=== PATIENT | male | born 1985 | race Hispanic/Latino ===

== ENCOUNTER 2023-11-09 02:16 | Emergency (ER) | payer SELFPAY ==
[2023-11-09] VITALS (7 sets, daily range): BP systolic 100–141; BP diastolic 62–93; PULSE 72–95; RESP 14–20; TEMP 36.8; O2SAT 98–100
--- NOTE | ~2023-11-09 | XR_ITS ---
XR chest 1V portable DATE: 11/09/2023 03:22 INDICATION: Cough TECHNIQUE: Portable upright AP chest on 11/09/2023 at 0308 hours COMPARISON: None FINDINGS: Normal heart size. No hilar or mediastinal enlargement. No pulmonary infiltrate or consolid ation, pleural effusion or pulmonary vascular congestion or pneumothorax is detected. Included skeletal structures are unremarkable. IMPRESSION: No active cardiopulmonary disease Reviewed, dictated and finalized at location A.
--- NOTE | 2023-11-09 02:31 | ECG_ITS ---
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 Measurements Intervals [place] Rate: 91 P: 67 OK: 135 QRS: 71 QRSD: 94 T: 70 QT: 363 QTc: 448 Interpretive Statements SINUS RHYTHM POSSIBLE LEFT ATRIAL ENLARGEMENT [-0.1mV P WAVE IN V1/V2] No previous ECG available for comparison Electronically Signed On 11-09-2023 14:15:04 CDT by Garrick Madrid M.D.
[2023-11-09 02:40] LABS: Basophils Percent Auto 0.5 % (0.2-1.2); Eosinophils Absolute Auto 0.1 K/mm3 (0-0.3); Eosinophils Percent Auto 1.6 % (0-4.4); Hematocrit 43.4 % (42.0-52.0); Hemoglobin 15.4 g/dL (14.0-18.0); Immature Granulocyte Absolute 0.02 K/mm3 (0.00-0.031); Immature Granulocyte Percent A 0.3 % (0-0.5); Lymphocytes Absolute Auto 1.65 K/mm3 (0.9-3.2); Mean Corpuscular HGB Conc 35.5 g/dl (32-36); Mean Corpuscular Volume 87.3 fl (80-100); Monocytes Absolute Auto 0.4 K/mm3 (0.1-0.6); Monocytes Percent Auto 6.4 % (2.6-8.5); Neutrophils Absolute Auto 3.9 K/mm3 (1.3-6.7); Neutrophils Percent Auto 64.2 % (45.5-73.1); Platelet Count Result 305 k/mm3 (150-375); Red Blood Count 4.97 M/mm3 (4.6-6.20); Red Cell Distribution Width 12.7 % (11.5-14.5); White Blood Count 6.1 K/mm3 (4.5-10.0)
[2023-11-09 02:41] LABS: Glucose Point of Care 364 mg/dl (65-105)
[2023-11-09 02:45] LABS: Appearance Urine Clear (Clear); Bilirubin Urine Negative (Negative); Blood Urine Negative (Negative); Color Urine Yellow (Yellow); Glucose Urine UA 3+ mg/dL (Negative); Ketones Urine Negative (Negative); Leukocyte Esterase Ur Negative LEU/UL (Negative); Nitrate Urine Negative (Negative); Protein Urine Negative (Negative); Urobilinogen Urine 0.2 mg/dL (<2.0); pH Urine 5.5 (5.0-9.0)
--- NOTE | 2023-11-09 02:45 | PC.NURSE ---
Called down to lab to add on troponin 1 to green top
[2023-11-09 02:51] LABS: Alanine Aminotransferase 42 U/L (6-50); Albumin Level 4.4 g/dL (3.5-5.1); Alkaline Phosphatase 129 U/L (38-126); Anion Gap 9 mmol/L (4-12); Aspartate Amino Transferase 76 U/L (17-59); Bilirubin,Total 0.4 mg/dL (0.2-1.3); Blood Urea Nitrogen 18 mg/dL (9-20); Calcium 9.3 mg/dL (8.4-10.2); Carbon Dioxide 26 mmol/L (22-30); Chloride 101 mmol/L (98-107); Estimated CRCL calculation 110 ml/min; Estimated Glomerular Filt Rate > 60; Glucose 424 mg/dL (65-110); Lipase 114 U/L (23-300); Potassium 4.1 mmol/L (3.4-5.0); Sodium 136 mmol/L (137-145)
[2023-11-09 03:01] LABS: Barbiturate Screen Urine Negative (Negative); Benzodiazepines Screen Urine Negative (Negative)
[2023-11-09 03:02] LABS: Cannabinoid Screen Urine Negative (Negative); Cocaine Screen Urine Negative (Negative); Methadone Screen Urine Negative (Negative); Opiate Screen Urine Negative (Negative); Phencyclidine Screen Urine Negative (Negative)
[2023-11-09 03:05] LABS: Troponin I < 0.012 ng/mL (0.000-0.034)
[2023-11-09 03:14] LABS: Add Urine Microscopic? NO; Specific Grav Ur 1.039 (1.001-1.035)
[2023-11-09 03:27] LABS: Amphetamine Screen Urine Positive (Negative)
[2023-11-09] MEDS: SODIUM CHLORIDE 0.9% IV 1,000 ML 999 ML IV CONT ×2 (03:40)
--- NOTE | 2023-11-09 04:08 | ED.GENADULT ---
HPI - General Adult General Chief complaint: Recheck/Abnormal Lab/Rx Stated complaint: Headache/Nausea Time Seen by Provider: 11/09/23 02:35 History of Present Illness HPI narrative: patient is a 38-year-old gentleman who presents emergency department with chief complaint of high blood sugars and burning with urination. The patient reports that he has been taking metformin and also been taking methamphetamine patient reports this evening he was detained by the police and started feeling ill and decided to come to the emergency department the patient also reports that he had some discomfort in his chest and has a very dry mouth Related Data Allergies Allergy/AdvReac Type Severity Reaction Status Date / Time Penicillins Allergy Hives Verified 11/09/23 02:29 Review of Systems Review of Systems: A 10 system review of systems was completed on the patient and is negative except for what is stated in the HPI. Nursing and ancillary documentation was reviewed. Exam Narrative: GENERAL: Well-appearing, well-nourished, and in no acute distress. HEAD: Normocephalic, atraumatic. EYES: PERRLA and EOMI. ENT: Nares clear, no rhinorrhea or epistaxis. Mucous membranes moist. NECK: Supple. CHEST: Clear to auscultation. No respiratory distress. HEART: Regular rate and rhythm. No murmur heard. Normal peripheral pulses. ABDOMEN: Soft, nontender, nondistended, normal active bowel sounds. : Normal external male genitalia uncircumcised no lesions present no necrotic tissue no crepitance no signs of Grace's gangrene EXTREMITIES: Normal range of motion. No edema. SKIN: Warm, dry, no rash. NEURO: No focal deficits. Alert and oriented x3. PSYCH: Normal mood and affect. Course Vital Signs Vital signs: Vital Signs Temperature 36.8 C 11/09/23 02:20 Pulse Rate 95 11/09/23 02:20 Respiratory Rate 18 11/09/23 02:20 Blood Pressure 141/91 H 11/09/23 02:20 Pulse Oximetry 100 11/09/23 02:20 Oxygen Delivery Room Air 11/09/23 02:20 Temperature 36.8 C 11/09/23 02:20 Pulse Rate 73 11/09/23 05:21 Respiratory Rate 14 11/09/23 05:21 Blood Pressure 115/79 11/09/23 05:21 Pulse Oximetry 98 11/09/23 05:21 Oxygen Delivery Room Air 11/09/23 02:20 Medical Decision Making Vital Signs Vital Signs: Vital Signs Temperature 36.8 C 11/09/23 02:20 Pulse Rate 95 11/09/23 02:20 Respiratory Rate 18 11/09/23 02:20 Blood Pressure 141/91 H 11/09/23 02:20 Pulse Oximetry 100 11/09/23 02:20 Oxygen Delivery Room Air 11/09/23 02:20 Temperature 36.8 C 11/09/23 02:20 Pulse Rate 73 11/09/23 05:21 Respiratory Rate 14 11/09/23 05:21 Blood Pressure 115/79 11/09/23 05:21 Pulse Oximetry 98 11/09/23 05:21 Oxygen Delivery Room Air 11/09/23 02:20 Lab Data 11/09/23 02:32 11/09/23 02:32 Labs: Lab Results 11/09/23 11/09/23 11/09/23 Range/Units 02:32 02:33 02:38 WBC 6.1 (4.5-10.0) K/mm3 RBC 4.97 (4.6-6.20) M/mm3 Hgb 15.4 (14.0-18.0) g/dL Hct 43.4 (42.0-52.0) % MCV 87.3 (80-100) fl MCH 31.0 (26-34) pg MCHC 35.5 (32-36) g/dl RDW 12.7 (11.5-14.5) % Plt Count 305 (150-375) k/mm3 MPV 10.0 (7.4-10.4) fl Immature Gran % (Auto) 0.3 (0-0.5) % Neut % (Auto) 64.2 (45.5-73.1) % Lymph % (Auto) 27.0 (18.3-44.2) % [place] % (Auto) 6.4 (2.6-8.5) % Eos % (Auto) 1.6 (0-4.4) % Baso % (Auto) 0.5 (0.2-1.2) % Lymph # (Auto) 1.65 (0.9-3.2) K/mm3 [place] # (Auto) 0.4 (0.1-0.6) K/mm3 Eos # (Auto) 0.1 (0-0.3) K/mm3 Baso # (Auto) 0.0 (0.0-0.1) K/mm3 Abs Immat Gran (auto) 0.02 (0.00-0.031) K/mm3 Absolute Neuts (auto) 3.9 (1.3-6.7) K/mm3 Absolute Nucleated RBC 0.000 (0.0-0.012) K/mm3 Nucleated RBC % 0.0 (0.0-0.2) % Sodium 136 L (137-145) mmol/L Potassium 4.1 (3.4-5.0) mmol/L Chloride 101 (98-107) mmol/L Carbon Dioxide 26 (22-3
[2023-11-09 04:16] LABS: Glucose Point of Care 292 mg/dl (65-105)
[2023-11-09 04:21] LABS: Chlamydia trachomatis NOT DETECTED (NOT DETECTE); Neisseria gonorrhoeae PCR NOT DETECTED (NOT DETECTE)
[2023-11-09 05:29] LABS: Trichomonas Vag PCR NOT DETECTED (NOT DETECTE)
== END 2023-11-09 06:04 | disposition home or self-care (01) ==
PROVIDERS: Emergency Provider Emergency Medicine
DX: E11.65 Type 2 diabetes mellitus with hyperglycemia (principal); F15.10 Other stimulant abuse, uncomplicated; R30.0 Dysuria
CPT/HCPCS: 36415; 71045; 80053; 80307; 81003; 82948; 83690; 84484; 85025; 87491; 87591; 87661; 93005; 96360; 99284; J7030

== ENCOUNTER 2024-01-05 01:39 | Emergency (ER) | payer SELFPAY ==
[2024-01-05 02:07] VITALS: BP 138/92; PULSE 96; RESP 15; TEMP 37; O2SAT 99
[2024-01-05 02:40] VITALS: BP 122/87; PULSE 81; RESP 20; O2SAT 99
[2024-01-05 02:55] LABS: Glucose Point of Care 339 mg/dl (65-105)
--- NOTE | 2024-01-05 04:13 | ED.GENADULT ---
HPI - General Adult General Chief complaint: Unspecified Stated complaint: pain all over Time Seen by Provider: 01/05/24 03:31 Source: patient Mode of arrival: EMS Limitations: language barrier History of Present Illness HPI narrative: Patient presents via EMS after being in police custody. Patient is Serbian-speaking. Interpreted language services used, [employer] #[id number]. He notes that he has been having hyperglycemia due to being out of his metformin 500mg BID yesterday. He states he has appointment tomorrow at 9:00 a.m. with his primary care physician to be prescribed home. He was also complaining of pain all over particularly in his upper chest feeling like he could not breathe. He points to the suprasternal notch when describing this but states that this is all better this time. No fevers or cough. He denies any underlying respiratory condition such as COPD or asthma. He had also been complaining of a headache but says that this is resolved. He says that his blood sugar had been 375 mg/dL at home. He was given 1 L normal saline in route and states that he feels all better now. He denies any prior history of DKA or HHS, has never required hospitalization or ICU care for his diabetes. Related Data Allergies Allergy/AdvReac Type Severity Reaction Status Date / Time Penicillins Allergy Hives Verified 01/06/24 08:40 PMFSH Past Medical History Medical History Non-insulin dependent diabetes mellitus Social History Social History Social History: Serbian speaking Exam Narrative: GENERAL: Well-appearing, well-nourished, and in no acute distress. HEAD: Normocephalic, atraumatic. EYES: Non injected, non icteric ENT: Nares clear, no rhinorrhea or epistaxis. NECK: Supple. CHEST: Speaking in full sentences. No respiratory distress. Lungs clear to auscultation bilaterally. HEART: Regular rate and rhythm. . ABDOMEN: Soft, nondistended. EXTREMITIES: Normal range of motion. No edema. SKIN: Warm, dry, no rash. NEURO: No focal deficits. Alert and oriented x3. PSYCH: Normal mood and affect. Course Vital Signs Vital signs: Vital Signs Temperature 98.6 F 01/05/24 02:07 Pulse Rate 96 01/05/24 02:07 Respiratory Rate 15 01/05/24 02:07 Blood Pressure 138/92 H 01/05/24 02:07 Pulse Oximetry 99 01/05/24 02:07 Oxygen Delivery Room Air 01/05/24 02:07 Temperature 98.6 F 01/05/24 02:07 Pulse Rate 78 01/05/24 05:34 Respiratory Rate 16 01/05/24 05:34 Blood Pressure 115/86 01/05/24 05:34 Pulse Oximetry 100 01/05/24 05:34 Oxygen Delivery Room Air 01/05/24 02:07 Medical Decision Making MDM Narrative Medical decision making narrative: Patient presents via EMS after being in police custody but with complaints hyperglycemia as well as pain over difficulty breathing and headache. He states he ran out of his metformin 500 mg b.i.d. yesterday but has an appointment tomorrow morning/this morning at 9:00 a.m. with his primary care provider for a refill. He also states that all the symptoms that he was having earlier have resolved. In the emergency department he is afebrile with acceptable vital signs (only elevated diastolic blood pressure). Although I do suspect have been an element of fear in the setting of being in police custody, do not want to presume that patient made up his symptoms so will perform basic labs. Hyperglycemia without anion gap acidosis. Pseudo hyponatremia as it corrects to 140-142 in the setting of hyperglycemia. Patient is requesting to be discharged at this time. Stable for discharge with follow-up with his primary care physician as previously scheduled appointment. Vital Signs Vital Signs: Vital Signs Temperature 98.6 F 01/05/24 02:07 Pulse Rate 96 01/05/24 02:07 Respiratory Rate 15 01/05/24 02:07 Blood Pressure 138/92 H 01/05/24 02:
[2024-01-05] MEDS: SODIUM CHLORIDE 0.9% IV 1,000 ML 999 ML IV CONT (04:26)
[2024-01-05 04:27] LABS: Basophils Absolute Auto 0.1 K/mm3 (0.0-0.1); Basophils Percent Auto 0.9 % (0.2-1.2); Eosinophils Absolute Auto 0.1 K/mm3 (0-0.3); Eosinophils Percent Auto 1.4 % (0-4.4); Hematocrit 40.4 % (42.0-52.0); Hemoglobin 14.2 g/dL (14.0-18.0); Immature Granulocyte Absolute 0.03 K/mm3 (0.00-0.031); Immature Granulocyte Percent A 0.5 % (0-0.5); Lymphocytes Absolute Auto 1.89 K/mm3 (0.9-3.2); Lymphocytes Percent Auto 29.3 % (18.3-44.2); Mean Corpuscular HGB Conc 35.1 g/dl (32-36); Mean Corpuscular Hemoglobin 31.3 pg (26-34); Mean Corpuscular Volume 89.2 fl (80-100); Mean Platelet Volume 9.9 fl (7.4-10.4); Monocytes Absolute Auto 0.5 K/mm3 (0.1-0.6); Monocytes Percent Auto 7.4 % (2.6-8.5); Neutrophils Absolute Auto 3.9 K/mm3 (1.3-6.7); Neutrophils Percent Auto 60.5 % (45.5-73.1); Platelet Count Result 288 k/mm3 (150-375); Red Blood Count 4.53 M/mm3 (4.6-6.20); Red Cell Distribution Width 12.9 % (11.5-14.5); White Blood Count 6.5 K/mm3 (4.5-10.0)
[2024-01-05 04:31] VITALS: BP 120/77; PULSE 78; RESP 16; O2SAT 99
[2024-01-05 04:34] LABS: Appearance Urine Clear (Clear); Bilirubin Urine Negative (Negative); Blood Urine Negative (Negative); Color Urine Yellow (Yellow); Glucose Urine UA 3+ mg/dL (Negative); Ketones Urine Trace mg/dL (Negative); Leukocyte Esterase Ur Negative LEU/UL (Negative); Nitrate Urine Negative (Negative); Protein Urine Negative (Negative); Specific Grav Ur 1.032 (1.001-1.035); pH Urine 6.5 (5.0-9.0)
[2024-01-05 04:37] LABS: Add Urine Microscopic? NO
[2024-01-05 04:39] LABS: Alanine Aminotransferase 26 U/L (6-50); Albumin Level 4.3 g/dL (3.5-5.1); Alkaline Phosphatase 224 U/L (38-126); Anion Gap 10 mmol/L (4-12); Aspartate Amino Transferase 29 U/L (17-59); Bilirubin,Total 0.5 mg/dL (0.2-1.3); Blood Urea Nitrogen 12 mg/dL (9-20); Calcium 9.2 mg/dL (8.4-10.2); Carbon Dioxide 26 mmol/L (22-30); Chloride 100 mmol/L (98-107); Estimated CRCL calculation 112 ml/min; Estimated Glomerular Filt Rate > 60; Glucose 338 mg/dL (65-110); Sodium 136 mmol/L (137-145)
[2024-01-05 04:44] LABS: Beta-Hydroxybutyrate/Acetoacetate 0.29 mmol/L (0.02-0.27)
[2024-01-05] MEDS: ACETAMINOPHEN 500 MG TABLET 1000 MG PO (04:49)
[2024-01-05 05:34] VITALS: BP 115/86; PULSE 78; RESP 16; O2SAT 100
== END 2024-01-05 05:42 | disposition home or self-care (01) ==
PROVIDERS: Emergency Provider Student in an Organized Health Care Education/Training Program
DX: E11.65 Type 2 diabetes mellitus with hyperglycemia (principal); R81 Glycosuria; R74.8 Abnormal levels of other serum enzymes; Z79.84 Long term (current) use of oral hypoglycemic drugs
CPT/HCPCS: 36415; 80053; 81003; 82010; 82948; 85025; 96360; 99284; A9270; J7030